=== PATIENT | male | born 1960 | race African-American/Black ===

== ENCOUNTER 2022-07-01 19:29 | Observation (INO) | payer OTHER ==
[2022-07-01 19:59] VITALS: BMI 32.8
[2022-07-01] MEDS ORDERED: MECLIZINE HCL 25 MG TABLET (FP) PO ONE (20:47)
[2022-07-01] MEDS ORDERED: ACETAMINOPHEN 1000 MG/100 ML BAG IVPB ONE (20:47)
[2022-07-01 21:30] LABS: BASO % 0.7 % (0-2.0); EOS % 2.6 % (0-4.5); HEMOGLOBIN 12.9 GM/dL (11.7-16.9); LYMPH % 9.2 % (8-40); MCHC 33.1 g/dl (32.0-35.9); MEAN CELL VOLUME 87.5 fl (80-96); MEAN PLT VOLUME 10.1 fl (7.5-11.1); MONO % 2.6 % (3.8-10.2); NEUT % 84.9 % (42.8-82.8); PLATELET COUNT 226 10^3/uL (134-434); RBC 4.46 M/mm3 (4.00-5.60); RDW 15.3 % (11.9-15.9)
[2022-07-01 21:46] LABS: CALCIUM 9.8 mg/dL (8.5-10.1)
[2022-07-01 21:48] LABS: ALBUMIN 3.2 g/dl (3.4-5.0)
[2022-07-01 21:51] LABS: CREATININE 1.5 mg/dL (0.55-1.3)
[2022-07-01 21:52] LABS: BILIRUBIN,TOTAL 0.5 mg/dL (0.2-1); TOT PROT 6.1 g/dl (6.4-8.2)
[2022-07-01] MEDS ORDERED: MECLIZINE HCL 25 MG TABLET (FP) ONE (22:15)
[2022-07-01] MEDS ORDERED: ACETAMINOPHEN INJECTION 100 ML IVPB ONE (22:15)
[2022-07-02] MEDS: LACTATED RINGERS SOLUTION 1,000 ML IV SCH (02:15)
[2022-07-02 02:21] LABS: OPIATES, URI NEGATIVE (NEGATIVE)
[2022-07-02 02:22] LABS: METHADONE, UR NEGATIVE (NEGATIVE); PHENCYCLIDINE,URINE NEGATIVE (NEGATIVE); URINE BENZODIAZEPINES NEGATIVE (NEGATIVE)
[2022-07-02 02:27] LABS: COCAINE, UR NEGATIVE (NEGATIVE); URINE AMPHETAMINES NEGATIVE (NEGATIVE); URINE BARBITURATES NEGATIVE (NEGATIVE)
[2022-07-02 06:31] LABS: CALCIUM 9.7 mg/dL (8.5-10.1)
[2022-07-02 06:32] LABS: ALBUMIN 2.9 g/dl (3.4-5.0); BLOOD UREA NITROGEN 19.4 mg/dL (7-18); MAGNESIUM 1.9 mg/dL (1.8-2.4)
[2022-07-02 06:34] LABS: CHOLESTEROL 129 mg/dL (50-200)
[2022-07-02 06:35] LABS: CREATININE 1.5 mg/dL (0.55-1.3); PHOSPHOROUS 2.3 mg/dL (2.5-4.9); TRIGLYCERIDES 100 mg/dL (0-150)
[2022-07-02 06:36] LABS: BILIRUBIN,TOTAL 0.5 mg/dL (0.2-1); LDL CHOLESTEROL (ONLY SJRH) 74 mg/dL (5-100)
[2022-07-02 06:38] LABS: HDL CHOLESTEROL 35 mg/dL (40-60); TOT PROT 5.3 g/dl (6.4-8.2)
[2022-07-02 06:44] LABS: BASO % 0.8 % (0-2.0); EOS % 4.3 % (0-4.5); HEMATOCRIT 36.5 % (35.4-49); HEMOGLOBIN 11.8 GM/dL (11.7-16.9); LYMPH % 26.3 % (8-40); MCH 28.6 pg (25.7-33.7); MCHC 32.5 g/dl (32.0-35.9); MEAN CELL VOLUME 87.9 fl (80-96); MEAN PLT VOLUME 10.3 fl (7.5-11.1); MONO % 5.2 % (3.8-10.2); NEUT % 63.4 % (42.8-82.8); PLATELET COUNT 178 10^3/uL (134-434); RBC 4.15 M/mm3 (4.00-5.60); RDW 14.9 % (11.9-15.9); WHITE BLOOD COUNT 5.6 K/mm3 (4.0-10.0)
[2022-07-02] MEDS: INSULIN SLIDING SCALE (NOVOLOG) 1 VIAL SQ SCH ×4 (08:41→22:36)
[2022-07-02] MEDS ORDERED: ENOXAPARIN NA (PORCINE) 40 MG/0.4 ML DISP.SYRIN SQ ONE (09:37)
[2022-07-02] MEDS: ENOXAPARIN NA (PORCINE) 40 MG/0.4 ML DISP.SYRIN SQ SCH (09:44)
[2022-07-02] MEDS ORDERED: NIFEdipine E.R 60 MG TABLET ONE (20:11)
[2022-07-02] MEDS: NIFEdipine E.R 60 MG TABLET PO SCH (20:12)
[2022-07-02] MEDS ORDERED: hydrALAZINE HCL 25 MG TABLET (FP) ONE (20:29)
[2022-07-02] MEDS: hydrALAZINE HCL 25 MG TABLET (FP) PO SCH ×2 (20:32→22:19)
[2022-07-02] MEDS: PREGABALIN 50 MG CAPSULE PO SCH (22:18)
[2022-07-02] MEDS: ATORVASTATIN CA 20 MG TABLET (FP) PO SCH (22:18)
[2022-07-02] MEDS: CARVEDILOL 6.25 MG TABLET (FP) PO SCH (22:19)
[2022-07-03] MEDS ORDERED: ALBUTEROL SO4 HFA INHALER IH PRN (00:58)
[2022-07-03] MEDS: INSULIN SLIDING SCALE (NOVOLOG) 1 VIAL SQ SCH ×4 (06:21→23:05)
[2022-07-03] MEDS: LACTATED RINGERS SOLUTION 1,000 ML IV SCH (06:48)
[2022-07-03] MEDS: hydrALAZINE HCL 25 MG TABLET (FP) PO SCH ×3 (06:49→22:31)
[2022-07-03] MEDS: PREGABALIN 50 MG CAPSULE PO SCH (06:49)
[2022-07-03] MEDS: CARVEDILOL 6.25 MG TABLET (FP) PO SCH ×2 (10:01→22:31)
[2022-07-03] MEDS: ENOXAPARIN NA (PORCINE) 40 MG/0.4 ML DISP.SYRIN SQ SCH (10:01)
[2022-07-03] MEDS: NIFEdipine E.R 60 MG TABLET PO SCH (10:01)
[2022-07-03] MEDS: HYDROCHLOROTHIAZIDE 25 MG TABLET (FP) PO SCH (10:01)
[2022-07-03] MEDS: LIDOCAINE PATCH REMOVAL MC SCH ×2 (10:55→22:31)
[2022-07-03] MEDS: LIDOCAINE 5% TOPICAL PATCH TP SCH (10:57)
[2022-07-03 12:10] LABS: EPI CELLS 4 /uL (0-25.1); HYALINE CASTS 0 /uL (0-3.1); URINE APPEARANCE CLEAR; URINE BACTERIA 2 /uL (0-1359); URINE BILIRUBIN NEGATIVE (NEGATIVE); URINE COLOR YELLOW; URINE GLUCOSE (UA) 1+ (NEGATIVE); URINE KETONE NEGATIVE (NEGATIVE); URINE LEUK ESTERASE NEGATIVE (NEGATIVE); URINE NITRITE NEGATIVE (NEGATIVE); URINE PROTEIN 3+ (NEGATIVE); URINE RBC 6 /uL (0-23.9); URINE UROBILINOGEN 0.2 mg/dL (0.2-1.0); URINE WBC 4 /uL (0-25.8)
[2022-07-03] MEDS: PREGABALIN 25 MG CAPSULE PO SCH ×2 (13:38→22:31)
[2022-07-03] MEDS: ATORVASTATIN CA 20 MG TABLET (FP) PO SCH (22:31)
[2022-07-04] MEDS ORDERED: ACETAMINOPHEN 325 MG TABLET (FP) PO PRN (01:18)
[2022-07-04] MEDS: LACTATED RINGERS SOLUTION 1,000 ML IV SCH ×2 (03:40→12:40)
[2022-07-04] MEDS: INSULIN SLIDING SCALE (NOVOLOG) 1 VIAL SQ SCH ×4 (06:25→21:13)
[2022-07-04] MEDS: hydrALAZINE HCL 25 MG TABLET (FP) PO SCH ×2 (06:26→14:49)
[2022-07-04] MEDS: PREGABALIN 25 MG CAPSULE PO SCH ×3 (06:26→21:08)
[2022-07-04 07:37] LABS: CALCIUM 9.3 mg/dL (8.5-10.1)
[2022-07-04 07:38] LABS: BLOOD UREA NITROGEN 14.6 mg/dL (7-18)
[2022-07-04 07:42] LABS: CREATININE 1.3 mg/dL (0.55-1.3)
[2022-07-04] MEDS: ENOXAPARIN NA (PORCINE) 40 MG/0.4 ML DISP.SYRIN SQ SCH (10:13)
[2022-07-04] MEDS: CARVEDILOL 6.25 MG TABLET (FP) PO SCH ×2 (10:13→21:08)
[2022-07-04] MEDS: HYDROCHLOROTHIAZIDE 25 MG TABLET (FP) PO SCH (10:13)
[2022-07-04] MEDS: LIDOCAINE 5% TOPICAL PATCH TP SCH (10:14)
[2022-07-04] MEDS ORDERED: ATORVASTATIN CA 40 MG TABLET (FP) PO SCH (15:55)
[2022-07-04] MEDS: NIFEdipine E.R 60 MG TABLET PO SCH (17:31)
[2022-07-04] MEDS: LIDOCAINE PATCH REMOVAL MC SCH (21:09)
[2022-07-05] MEDS: LACTATED RINGERS SOLUTION 1,000 ML IV SCH (02:30)
[2022-07-05] MEDS: PREGABALIN 25 MG CAPSULE PO SCH (05:51)
[2022-07-05] MEDS: INSULIN SLIDING SCALE (NOVOLOG) 1 VIAL SQ SCH (06:43)
[2022-07-05] MEDS: LIDOCAINE 5% TOPICAL PATCH TP SCH (09:14)
[2022-07-05] MEDS: CARVEDILOL 6.25 MG TABLET (FP) PO SCH (09:14)
[2022-07-05] MEDS: ENOXAPARIN NA (PORCINE) 40 MG/0.4 ML DISP.SYRIN SQ SCH (09:14)
[2022-07-05] MEDS: NIFEdipine E.R 60 MG TABLET PO SCH (09:14)
[2022-07-05 09:15] VITALS: BP 165/69; PULSE 7; RESP 16; TEMP 98.4
== END 2022-07-05 11:18 | disposition home or self-care (01) ==
LOC: JER 19:29 → JERBED 20:57 → J4W 07-02 21:27
PROVIDERS: ADMIT Internal Medicine
PROC: 3E033NZ Introduction of Analgesics, Hypnotics, Sedatives into Peripheral Vein, Percutaneous Approach (ICD-10-PCS; principal; 2022-07-01)
PROC: 3E013VG Introduction of Insulin into Subcutaneous Tissue, Percutaneous Approach (ICD-10-PCS; 2022-07-01)
PROC: 3E0337Z Introduction of Electrolytic and Water Balance Substance into Peripheral Vein, Percutaneous Approach (ICD-10-PCS; 2022-07-01)
DX: R42 Dizziness and giddiness (principal); W18.39XA Other fall on same level, initial encounter; Y93.89 Activity, other specified; Y92.89 Other specified places as the place of occurrence of the external cause; J45.909 Unspecified asthma, uncomplicated; I10 Essential (primary) hypertension; E11.9 Type 2 diabetes mellitus without complications; R29.6 Repeated falls; M62.81 Muscle weakness (generalized); Z88.8 Allergy status to other drugs, medicaments and biological substances; M54.30 Sciatica, unspecified side; R06.02 Shortness of breath; N62 Hypertrophy of breast; R11.2 Nausea with vomiting, unspecified
CPT/HCPCS: 0241U-QW; 36415; 70450-TC; 71046-TC-FY; 72125-TC; 76775-TC; 80048; 80053; 80061; 80307; 81003; 82550; 82962; 83735; 84100; 84146; 84439; 84443; 84484; 85025; 93005; 93010; 93306-TC; 93880-TC; 97116-GP; 97161-GP; 99285-25; G0378